=== PATIENT | male | born 1955 | race Caucasian/White ===

== ENCOUNTER 2020-09-11 01:40 | Outpatient (CLI) | payer MEDICARE, SELFPAY ==
[2020-09-11 20:39] LABS: SARS-CoV-2 RNA PCR Negative
== END 2020-09-11 01:41 | disposition home or self-care (01) ==
LOC: ANHCOVIDDT 01:43
PROVIDERS: PCP Family Medicine; Visit Provider Internal Medicine Gastroenterology
DX: Z01.812 Encounter for preprocedural laboratory examination (principal); Z20.828 Contact with and (suspected) exposure to other viral communicable diseases
CPT/HCPCS: 87635; C9803; U0003

== ENCOUNTER 2020-09-14 01:20 | Day surgery (SDC) | payer MEDICARE, SELFPAY ==
[2020-09-08 15:13] VITALS: BMI 29.9
--- NOTE | 2020-09-14 06:40 | WPDANESEPPF ---
Anes - Initial Pre Proc Eval Procedure: Operation Date: 09/14/20 09:00 Proposed Procedures p Screening Colonoscopy - Maynor Enriquez MD Date/Time: 09/14/20 06:40 Surgeon: Maynor Enriquez MD Pre Op Diagnosis: Personal Hx of Colon Polyps Patient Data Age: 64 Gender: M Height: 1.83 m Weight: 100 kg Allergies Allergy/AdvReac Type Severity Reaction Status Date / Time No Known Allergies Allergy Mild Verified 09/14/20 07:53 Home Medications Medication Instructions Recorded Confirmed Type aspirin [Adult Aspirin] 81 mg PO DAILY 09/08/20 09/14/20 History cholecalciferol (vitamin D3) 50 mcg PO BID 09/08/20 09/08/20 History citalopram 40 mg PO DAILY 09/08/20 09/08/20 History clopidogrel 75 mg PO DAILY 09/08/20 09/08/20 History coenzyme Q10 [Co Q-10] 200 mg PO DAILY 09/08/20 09/08/20 History ezetimibe 10 mg PO DAILY 09/08/20 09/08/20 History folic acid-vit B6-vit B12 [Folbic] 1 tablet PO DAILY 09/08/20 09/14/20 History isosorbide mononitrate 30 mg PO DAILY 09/08/20 09/14/20 History levetiracetam 500 mg PO DAILY 09/08/20 09/08/20 History levothyroxine [Euthyrox] 125 mcg PO DAILY 09/08/20 09/08/20 History lisinopril 20 mg PO DAILY 09/08/20 09/08/20 History metoprolol tartrate 12.5 mg PO BID 09/08/20 09/08/20 History zkuyosho-wsk-XJ-lycopen-lutein 1 tablet PO DAILY 09/08/20 09/08/20 History [Centrum Silver Men] nitroglycerin 0.4 mg SUBLINGUAL DAILY PRN 09/08/20 09/08/20 History omega 5-oto-mdq-fish oil [Fish Oil] 1 cap PO DAILY 09/08/20 09/08/20 History rosuvastatin 40 mg PO DAILY 09/08/20 09/08/20 History Patient hx anesthesia problems: none Family hx anesthesia problems: none PMFSH Past Medical History Medical History (Updated 09/14/20 @ 08:24 by Maynor Enriquez MD) CAD (coronary artery disease) CVA (cerebral vascular accident) HTN (hypertension) Hypercholesterolemia Hypothyroidism Melanoma Osteoarthritis Overweight (BMI 25.0-29.9) Seizure Surgical History Surgical History (Updated 09/14/20 @ 06:41 by Carlitos Ibarra MD) History of coronary artery stent placement S/P CABG (coronary artery bypass graft) Social History Social History Smoking packs per day: 0.25 Smoking cigarettes per day: 5.0 Years smoked: 40 Smoking pack-years: 10.00 Smoking status: Current every day smoker Tobacco type: cigarettes Living arrangements: alone Spiritual care concerns: No Anes - Eval Final PreProcedure Day of Procedure 09/14/20 06:40 Patient weight: overweight Heart: regular rate and rhythm Lungs: clear to auscultation and normal air movement Airway: Mallampati scale class II Neurological: alert and oriented Last oral intake: >/= 8 hours ASA classification: III Emergent: no Anesthetic plan: proceed Anesthesia type and monitoring: general GIVS Informed Consent: The patient's anesthetic plan and its attendant risks and benefits were discussed with the patient/family/POA. Questions were solicited and answers provided to the satisfaction of the patient/family/POA.
[2020-09-14 07:45] VITALS: BP 147/73; PULSE 81; RESP 18; TEMP 36.7; O2SAT 97; BMI 29.2
[2020-09-14] MEDS: LACTATED RINGERS 1,000 ML 150 ML IV CONT (08:12)
--- NOTE | 2020-09-14 08:22 | WPDGICN ---
Assessment and Plan Assessment and plan (1) History of colon polyps: Code(s): Z86.010 - Personal history of colonic polyps Status: Acute Assessment and Plan: Patient has had a history of colon polyps in several previous endoscopies. Plan is for surveillance colonoscopy at this time. GI Consult Note Consult date/time: 09/14/20 08:22 HPI: Junaid Sandoval is a 64 year old male Seen in evaluation at the request Dr. Kareem Reid. Patient presents for colonoscopy. Patient reports having had a hyperplastic polyp removed from the colon 5 years ago. He has had other polyps in prior years. His current weight appetite bowel movements normal. He denies abdominal pain. He has had no bleeding. His family history is noncontributory. Weight appetite are otherwise normal. Review of Systems Review of Systems: All systems reviewed & are unremarkable except as noted in HPI and below PMFSH Past Medical History Medical History (Updated 09/14/20 @ 08:24 by Maynor Enriquez MD) CAD (coronary artery disease) CVA (cerebral vascular accident) HTN (hypertension) Hypercholesterolemia Hypothyroidism Melanoma Osteoarthritis Overweight (BMI 25.0-29.9) Seizure Surgical History Surgical History (Updated 09/14/20 @ 06:41 by Carlitos Ibarra MD) History of coronary artery stent placement S/P CABG (coronary artery bypass graft) Social History Social History Smoking packs per day: 0.25 Smoking cigarettes per day: 5.0 Years smoked: 40 Smoking pack-years: 10.00 Smoking status: Current every day smoker Tobacco type: cigarettes Living arrangements: alone Spiritual care concerns: No Meds Home Medications and Allergies Home Medications Medication Instructions Recorded Confirmed Type aspirin [Adult Aspirin] 81 mg PO DAILY 09/08/20 09/14/20 History cholecalciferol (vitamin D3) 50 mcg PO BID 09/08/20 09/08/20 History citalopram 40 mg PO DAILY 09/08/20 09/08/20 History clopidogrel 75 mg PO DAILY 09/08/20 09/08/20 History coenzyme Q10 [Co Q-10] 200 mg PO DAILY 09/08/20 09/08/20 History ezetimibe 10 mg PO DAILY 09/08/20 09/08/20 History folic acid-vit B6-vit B12 [Folbic] 1 tablet PO DAILY 09/08/20 09/14/20 History isosorbide mononitrate 30 mg PO DAILY 09/08/20 09/14/20 History levetiracetam 500 mg PO DAILY 09/08/20 09/08/20 History levothyroxine [Euthyrox] 125 mcg PO DAILY 09/08/20 09/08/20 History lisinopril 20 mg PO DAILY 09/08/20 09/08/20 History metoprolol tartrate 12.5 mg PO BID 09/08/20 09/08/20 History xjaurric-bsk-WR-lycopen-lutein 1 tablet PO DAILY 09/08/20 09/08/20 History [Centrum Silver Men] nitroglycerin 0.4 mg SUBLINGUAL DAILY PRN 09/08/20 09/08/20 History omega 7-imd-run-fish oil [Fish Oil] 1 cap PO DAILY 09/08/20 09/08/20 History rosuvastatin 40 mg PO DAILY 09/08/20 09/08/20 History Allergies Allergy/AdvReac Type Severity Reaction Status Date / Time No Known Allergies Allergy Mild Verified 09/14/20 07:53 Vital Signs Vital Signs - 24 hr 09/14/20 07:45 Temperature 98.1 F Pulse Rate 81 Respiratory Rate 18 Blood Pressure 147/73 H Pulse Oximetry 97 Exam Narrative: Exam Narrative: Physical exam reveals patient to be alert. Vital signs stable. HEENT exam unremarkable. Lungs are clear to auscultation and percussion. Heart is without murmur or extra sounds. Abdominal exam bowel sounds are present soft nontender with no organomegaly. Digital external rectal exam is normal.
[2020-09-14 09:20] VITALS: BP 114/62; PULSE 75; RESP 16; O2SAT 96
[2020-09-14 09:30] VITALS: BP 115/68; PULSE 71; RESP 16; O2SAT 97
[2020-09-14 09:40] VITALS: BP 125/66; PULSE 66; RESP 18; O2SAT 98
--- NOTE | 2020-09-14 10:20 | SUR.PHASEII ---
pt instructed to hold Plavix for [address] Enriquez
== END 2020-09-14 10:20 | disposition home or self-care (01) ==
PROVIDERS: PCP Family Medicine; Visit Provider Internal Medicine Gastroenterology
PROC: 0DJD8ZZ Inspection of Lower Intestinal Tract, Via Natural or Artificial Opening Endoscopic (ICD-10-PCS; CPT 45378; principal; 2020-09-14 09:00)
DX: Z12.11 Encounter for screening for malignant neoplasm of colon (principal); D12.3 Benign neoplasm of transverse colon; K57.30 Diverticulosis of large intestine without perforation or abscess without bleeding; K64.8 Other hemorrhoids; I25.10 Atherosclerotic heart disease of native coronary artery without angina pectoris; I10 Essential (primary) hypertension; E78.00 Pure hypercholesterolemia, unspecified; E03.9 Hypothyroidism, unspecified; G40.909 Epilepsy, unspecified, not intractable, without status epilepticus; Z79.82 Long term (current) use of aspirin; Z79.02 Long term (current) use of antithrombotics/antiplatelets; Z95.1 Presence of aortocoronary bypass graft; Z95.5 Presence of coronary angioplasty implant and graft; F17.210 Nicotine dependence, cigarettes, uncomplicated
CPT/HCPCS: 45385; 88305; J2001; J2704; J7120